=== PATIENT | male | born 1990 | race Caucasian/White ===

== ENCOUNTER 2023-06-11 12:17 | Emergency (ER) | payer OTHER, SELFPAY ==
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
[2023-06-11 12:18] VITALS: BP 170/117; PULSE 106; RESP 18; TEMP 36.7; O2SAT 100
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
[2023-06-11 13:55] VITALS: BP 162/111; PULSE 90; RESP 18; O2SAT 98
== END 2023-06-11 13:56 | disposition home or self-care (01) ==
LOC: ANHED 13:48
PROVIDERS: Emergency Provider Student in an Organized Health Care Education/Training Program
DX: Z77.098 Contact with and (suspected) exposure to other hazardous, chiefly nonmedicinal, chemicals (principal)
CPT/HCPCS: 71046; 99283